=== PATIENT | female | born 1970 | race Caucasian/White ===

== ENCOUNTER 2019-10-11 14:15 | Emergency (ER) | payer BC ==
[2019-10-11] MEDS ORDERED: Albuterol/Ipratropium 3.0-0.5 MG/3 ML Neb Soln NEB ONE (14:19)
--- NOTE | 2019-10-11 14:25 | EDM.PDOC ---
ED HPI GENERAL MEDICAL PROBLEM - General Chief Complaint: Respiratory Problem Stated Complaint: COLD, SOB Time Seen by Provider: 10/11/19 14:24 Source of Information: Reports: Patient - History of Present Illness INITIAL COMMENTS - FREE TEXT/NARRATIVE: HISTORY AND PHYSICAL: History of present illness: [pt presents with lung ca hx recently followed in [place], she has multiple familky members with repiratoy symptoms, she is on prednisone and methotrexate no f/n/v/c/s/some sob with ambulation ambulatory o2 sAT 90-93 % AFTER DUONEB AND SOLUMEDROL patient had stopped using nebs on her own ] Review of systems: As per history of present illness and below otherwise all systems reviewed and negative. Past medical history: As per history of present illness and as reviewed below otherwise noncontributory. Surgical history: As per history of present illness and as reviewed below otherwise noncontributory. Social history: No reported history of drug or alcohol abuse. Family history: As per history of present illness and as reviewed below otherwise noncontributory. Physical exam: HEENT: Atraumatic, normocephalic, pupils reactive, negative for conjunctival pallor or scleral icterus, mucous membranes moist, throat clear, neck supple, nontender, trachea midline. Lungs: Clear to auscultation POST NEB AND STEROID , breath sounds equal bilaterally, chest nontender. Heart: S1S2, regular, negative for clicks, rubs, or JVD. Abdomen: Soft, nondistended, nontender. Negative for masses or hepatosplenomegaly. Negative for costovertebral tenderness. Pelvis: Stable nontender. Genitourinary: Deferred. Rectal: Deferred. Extremities: Atraumatic, negative for cords or calf pain. Neurovascular unremarkable. Neuro: Awake, alert, oriented. Cranial nerves II through XII unremarkable. Cerebellum unremarkable. Motor and sensory unremarkable throughout. Exam nonfocal. Diagnostics: [Influenza Chest 1 view ] Therapeutics: duoneb nebs at home qid 7 days prednisone 20mg po daily 5 days zpak offered observation admit, patient refused ] Impression: [cough immunocompromized chronic hx baseline med non compliance with neb ] Definitive disposition and diagnosis as appropriate pending reevaluation and review of above. - Related Data Allergies Allergy/AdvReac Type Severity Reaction Status Date / Time No Known Allergies Allergy Verified 10/11/19 14:38 Home Meds: Home Meds Methotrexate [Xatmep] 10/11/19 [History] predniSONE [Prednisone] 4 mg PO BID 10/11/19 [History] ED ROS GENERAL - Review of Systems Review Of Systems: See Below ED EXAM, GENERAL - Physical Exam Exam: See Below Course - Vital Signs Last Recorded V/S: Last Vital Signs Temp 97.4 F 10/11/19 14:29 Pulse 120 H 10/11/19 14:29 Resp 22 H 10/11/19 14:29 BP 187/98 H 10/11/19 14:29 Pulse Ox 92 L 10/11/19 14:29 - Orders/Labs/Meds Orders: Active Orders 24 hr Category Date Time Status RT Aerosol Therapy [RC] ASDIRECTED Care 10/11/19 14:19 Active Meds: Medications Discontinued Medications Generic Name Dose Route Start Last Admin Trade Name Freq PRN Reason Stop Dose Admin Albuterol/Ipratropium 3 ml 10/11/19 14:19 10/11/19 14:44 Duoneb 3.0-0.5 Mg/3 Ml NEB 10/11/19 14:20 3 ml ONETIME ONE Administration Methylprednisolone Sodium Succinate 125 mg 10/11/19 14:29 10/11/19 14:44 Solu-Medrol IM 10/11/19 14:30 125 mg ONETIME ONE Administration Departure - Departure Time of Disposition: 15:18 Disposition: Home, Self-Care 01 Condition: Good Clinical Impression: Bronchitis - Discharge Information Referrals: Reji Main MD [Primary Care Provider] - Forms: ED Department Discharge Additional Instructions: medication as prescribed return if persit or aorsen f/u pcp 2 weeks sooner as needed The following information is given to patients seen in the emergency department who are being discharged to home. This information is to outline your options for follow-up care. We provide all patients seen in our emergency department with a follow-up referral. The need for follow-up, as well as the timing and circumstances, are variable depending upon the specifics of your emergency department visit. If you don't have a primary care physician on staff, we will provide you with a referral. We always advise you to contact your personal physician following an emergency department visit to inform them of the circumstance of the visit and for follow-up with them and/or the need for any referrals to a consulting specialist. The emergency department will also refer you to a specialist when appropriate. This referral assures that you have the opportunity for follow-up care with a specialist. All of these measure are taken in an effort to provide you with optimal care, which includes your follow-up. Under all circumstances we always encourage you to contact your private physician who remains a resource for coordinating your care. When calling for follow-up care, please make the office aware that this follow-up is from your recent emergency room visit. If for any reason you are refused follow-up, please contact the [facility] emergency department at and asked to speak to the emergency department charge nurse. Sepsis Event Note - Focused Exam Vital Signs: Vital Signs Temp Pulse Resp BP Pulse Ox 10/11/19 14:29 97.4 F 120 H 22 H 187/98 H 92 L Date Exam was Performed: 10/11/19 Time Exam was Performed: 15:17 - My Orders Last 24 Hours: My Active Orders 10/11/19 14:19 RT Aerosol Therapy [RC] ASDIRECTED - Assessment/Plan Last 24 Hours: My Active Orders 10/11/19 14:19 RT Aerosol Therapy [RC] ASDIRECTED
[2019-10-11] MEDS ORDERED: methylPREDNISolone Sodium Succinate 125 MG/2 ML SDV IM ONE (14:29)
--- NOTE | 2019-10-11 15:12 | CR ---
INDICATION: Cough, dyspnea TECHNIQUE: Chest radiograph 1 view COMPARISON: 05/12/2018 FINDINGS: Mediastinum: The mediastinum is normal in appearance. The heart silhouette is normal in size and morphology. Lung: Complete opacification of the right hemithorax is noted, increased from prior exam. Patient status post right thoracotomy. No sign of pleural effusion seen. No pneumothorax is identified. Bone and Soft tissue: Unremarkable for age. IMPRESSION: 1. Complete opacification of the right hemithorax is noted, increased from prior exam. Dictated by Mode Sharma MD @ 10/11/2019 3:06:59 PM Dictated by: Mode Sharma MD @ 10/11/2019 15:10:40 (Electronically Signed)
== END 2019-10-11 15:32 | disposition home or self-care (01) ==
LOC: MW.ED 14:15
DX: J40 Bronchitis, not specified as acute or chronic (principal); Z85.118 Personal history of other malignant neoplasm of bronchus and lung; Z79.899 Other long term (current) drug therapy
CPT/HCPCS: 71045; 87804; 96372; 99285; J2930; 99283; J7620-GY

== ENCOUNTER 2022-03-07 07:02 | Day surgery (SDC) | payer BC ==
[~2022-03-07 07:02] MED LIST: Lactated Ringers 1,000 ML IV SCH
[2022-03-07] MEDS ORDERED: Lidocaine 2% 5 ML SDV ONE (07:31)
[2022-03-07] MEDS ORDERED: Propofol 200 MG/20 ML SDV ONE (07:32)
[2022-03-07] MEDS ORDERED: fentaNYL 100 MCG/2 ML SDV ONE (07:32)
[2022-03-07] MEDS ORDERED: Ondansetron 4 MG/2 ML SDV ONE (08:44)
== END 2022-03-07 10:00 | disposition home or self-care (01) ==
LOC: MW.SDS 07:02
PROVIDERS: ATTEND Surgery
DX: Z12.11 Encounter for screening for malignant neoplasm of colon (principal); D12.0 Benign neoplasm of cecum; D12.2 Benign neoplasm of ascending colon; D12.5 Benign neoplasm of sigmoid colon; K64.4 Residual hemorrhoidal skin tags; J44.9 Chronic obstructive pulmonary disease, unspecified; K21.9 Gastro-esophageal reflux disease without esophagitis; F41.9 Anxiety disorder, unspecified; F32.A Depression, unspecified; E66.9 Obesity, unspecified; Z68.30 Body mass index [BMI] 30.0-30.9, adult; Z79.52 Long term (current) use of systemic steroids; Z87.891 Personal history of nicotine dependence; Z98.890 Other specified postprocedural states
CPT/HCPCS: 45380; 45385; J2405; J2704; J3010; J7120; 00812